=== PATIENT | female | born 1970 | race Caucasian/White ===

== ENCOUNTER 2019-07-24 12:17 | Emergency (ER) | payer BC ==
[2019-07-24 12:42] LABS: ABSOLUTE BASOPHILS # (AUTO) 0.1 10^3/uL (0.0-0.2); ABSOLUTE MONOCYTES (AUTO) 0.7 10^3/uL (0.1-1.4); HEMOGLOBIN 12.6 g/dL (12.0-15.5); TOTAL CELLS COUNTED % (AUTO) 100 %; WHITE BLOOD COUNT 13.2 10^3/uL (4.0-10.5)
[2019-07-24 12:47] LABS: ABSOLUTE EOSINOPHILS # (AUTO) 0.3 10^3/uL (0.0-0.6); ABSOLUTE LYMPHOCYTES (AUTO) 3.3 10^3/uL (0.5-4.7); ABSOLUTE NEUT (AUTO) 8.7 10^3/uL (1.7-8.2); BASOPHILS % (AUTO) 0.8 % (0-2); EOSINOPHILS % (AUTO) 2.6 % (0-6); HEMATOCRIT 37.2 % (36.0-47.0); LYMPHOCYTES % (AUTO) 24.7 % (13-45); MEAN CORPUSCULAR HEMOGLOBIN 27.5 pg (27.0-33.4); MEAN CORPUSCULAR HGB CONC 33.8 g/dL (32.0-36.0); MEAN CORPUSCULAR VOLUME 81 fl (80-97); MONOCYTES % (AUTO) 5.6 % (3-13); PLATELET COUNT 282 10^3/uL (150-450); RED BLOOD COUNT 4.57 10^6/uL (3.72-5.28); RED CELL DISTRIBUTION WIDTH 15.3 % (11.5-14.0); SEGMENTED NEUTROPHILS % (AUTO) 66.3 % (42-78)
[2019-07-24 13:01] LABS: ALBUMIN 4.1 g/dL (3.5-5.0); ALCOHOL < 10 mg/dL (NONE DETECTED); ALKALINE PHOSPHATASE 112 U/L (38-126); ANION GAP 10 (5-19); ASPARTATE AMINO TRANSFERASE 32 U/L (14-36); BILIRUBIN,DIRECT 0.2 mg/dL (0.0-0.4); BILIRUBIN,TOTAL 0.6 mg/dL (0.2-1.3); BLOOD UREA NITROGEN 12 mg/dL (7-20); CALCIUM 9.3 mg/dL (8.4-10.2); CARBON DIOXIDE 29 mmol/L (22-30); CHLORIDE 100 mmol/L (98-107); GLUCOSE 105 mg/dL (75-110); POTASSIUM 3.5 mmol/L (3.6-5.0); TOTAL PROTEIN 8.2 g/dL (6.3-8.2)
[2019-07-24 13:01] LABS: APPEARANCE,URINE CLEAR; BILIRUBIN,URINE NEGATIVE (NEGATIVE); COLOR,URINE YELLOW; GLUCOSE, URINE NEGATIVE (NEGATIVE); KETONES,URINE NEGATIVE (NEGATIVE); LEUKOCYTE ESTERASE,URINE NEGATIVE (NEGATIVE); NITRITE,URINE NEGATIVE (NEGATIVE); PROTEIN,URINE 30 mg/dL (NEGATIVE); URINE SPECIFIC GRAVITY 1.009; UROBILINOGEN,URINE NEGATIVE mg/dL (<2.0)
--- NOTE | 2019-07-24 13:02 | RADIOLOGY REPORT (SQ) ---
EXAM DESCRIPTION: CT HEAD WITHOUT COMPLETED DATE/TIME: 07/24/2019 12:29 pm REASON FOR STUDY: STROKE ALERT COMPARISON: None. TECHNIQUE: Axial images acquired through the brain without intravenous contrast. Images reviewed wi th bone, brain and subdural windows. Images stored on PACS. All CT scanners at this facility use dose modulation, iterative reconstruction, and/or weight based d osing when appropriate to reduce radiation dose to as low as reasonably achievable (ALARA). [facility]: Dose Right [facility]: CareDose [facility]: Dose Right [facility]: Teradose 4D [facility]: Smart Wanderio RADIATION DOSE: mGy. LIMITATIONS: None. FINDINGS: VENTRICLES: Normal size and contour. CEREBRUM: Focal hypoattenuation is seen adjacent to the left lateral ventricle extending to include t he caudate and putamen. A small amount of edema is seen adjacent to this finding, suggesting acute t o subacute ischemic injury. No masses. No hemorrhage. No midline shift. CEREBELLUM: No masses. No hemorrhage. No alteration of density. No evidence for acute infarction. EXTRAAXIAL SPACES: No fluid collections. No masses. ORBITS AND GLOBE: No intra- or extraconal masses. Normal contour of globe without masses. CALVARIUM: No fracture. PARANASAL SINUSES: No fluid or mucosal thickening. SOFT TISSUES: No mass or hematoma. OTHER: No other significant finding. IMPRESSION: Acute to subacute ischemic injury involving the left M1 segment of the MCA territory. EVIDENCE OF ACUTE STROKE: YES. Ischemic injury to the left caudate and putamen; M1 segment of the MC A territory COMMENT: Pertinent findings on the imaging study reported as a CRITICAL RESULT to Dr Baum at12:46 on 07/24/2019. Category of Critical Result: Stroke code positive Quality ID # [id number]: Final reports with documentation of one or more dose reduction techniques (e.g., Au tomated exposure control, adjustment of the mA and/or kV according to patient size, use of iterative reconstruction technique) TECHNICAL DOCUMENTATION: JOB ID: [id number] [employer]- All Rights Reserved Reading location - IP/workstation name: [email or web address]
[2019-07-24 13:06] LABS: INTERNATIONAL RATION (INR) 1.01; PROTHROMBIN TIME 13.3 SEC (11.4-15.4)
--- NOTE | 2019-07-24 13:06 | RADIOLOGY REPORT (SQ) ---
EXAM DESCRIPTION: CHEST SINGLE VIEW COMPLETED DATE/TIME: 07/24/2019 12:27 pm REASON FOR STUDY: STROKE ALERT COMPARISON: None. EXAM PARAMETERS: NUMBER OF VIEWS: One view. TECHNIQUE: Single frontal radiographic view of the chest acquired. RADIATION DOSE: NA LIMITATIONS: None. FINDINGS: LUNGS AND PLEURA: No opacities, masses or pneumothorax. No pleural effusion. MEDIASTINUM AND HILAR STRUCTURES: No masses. Contour normal. HEART AND VASCULAR STRUCTURES: Heart normal in size. Normal vasculature. BONES: No acute findings. HARDWARE: None in the chest. OTHER: No other significant finding. IMPRESSION: NO ACUTE RADIOGRAPHIC FINDING IN THE CHEST. TECHNICAL DOCUMENTATION: JOB ID: [id number] [employer]- All Rights Reserved Reading location - IP/workstation name: [email or web address]
[2019-07-24] MEDS ORDERED: NORMAL SALINE 1000 ML 1,000 ML IV ONE (13:13)
[2019-07-24] MEDS ORDERED: ASPIRIN 81 MG TABLET, CHEWABLE PO ONE (13:13)
[2019-07-24 13:16] LABS: URINE AMPHETAMINES SCREEN NEGATIVE; URINE BARBITURATES SCREEN NEGATIVE; URINE BENZODIAZEPINES SCREEN NEGATIVE; URINE COCAINE SCREEN NEGATIVE; URINE MARIJUANA (THC) SCREEN NEGATIVE; URINE METHADONE SCREEN NEGATIVE; URINE PHENCYCLIDINE SCREEN NEGATIVE
--- NOTE | 2019-07-24 13:25 | ER Document Report ---
Entered by SREEDHAR BACA SCRIBE 07/24/19 1239 Acting as scribe for:DELMA CANADA MD ED General - General Stated Complaint: POSSIBLE STROKE Mode of Arrival: Medic Information source: Patient Notes: This 49-year-old female patient with a history of prior TIAs presents to the emergency department today with complaints of left-sided weakness, left-sided facial droop, and slurred speech prior to arrival. Patient states that she had "about 6 or 7 TIAs" today, stating that each one seemed to be worse than the prior. Patient states she decided to come into the emergency department after the last TIA when she began to develop left-sided motor deficits. According to family at bedside, the patient had a TIA on 2018 and was put on Plavix for 3 weeks as well as atorvastatin. Patient adds that she stopp ed taking the atorvastatin however because she thought she might be allergic to it. On arrival here, the patient was rapidly assessed by Dr. Meek who noted mildly slurred speech as well as decreased sensation on the left hand side. All of these deficits have since resolved. On initial evaluation the patient is entirely neurologically intact with no deficits detected by me or reported by the patient. She is not a TPA candidate. - Related Data Allergies/Adverse Reactions: No Known Allergies Allergy (Unverified 07/24/19 13:29) Past Medical History - General Information source: Patient - Social History Smoking Status: Never Smoker Cigarette use (# per day): No Frequency of alcohol use: None Drug Abuse: None Lives with: Family Family History: Reviewed & Not Pertinent Neurological Medical History: Reports: Hx Cerebrovascular Accident - ? Possibly TIAs Review of Systems - Review of Systems Constitutional: No symptoms reported EENT: No symptoms reported Cardiovascular: No symptoms reported Respiratory: No symptoms reported Gastrointestinal: No symptoms reported Genitourinary: No symptoms reported Female Genitourinary: No symptoms reported Musculoskeletal: No symptoms reported Skin: No symptoms reported Hematologic/Lymphatic: No symptoms reported Neurological/Psychological: See HPI, Weakness, Speech impairment -: Yes All other systems reviewed and negative Physical Exam - Vital signs Vitals: Resp Pulse Ox 17 100 07/24/19 12:28 07/24/19 12:28 - Notes Notes: Physical Exam: General: Alert, appears well. HEENT: Normocephalic. Atraumatic. PERRL. Extraocular movements intact. Oropharynx clear. Very loud carotid bruit on the right. Neck: Supple. Non-tender. Respiratory: No respiratory distress. Clear and equal breath sounds bilaterally. Cardiovascular: Regular rate and rhythm. Abdominal: Normal Inspection. Non-tender. No distension. Normal Bowel Sounds. Back: No gross abnormalities. Extremities: Moves all four extremities. Upper extremities: Normal inspection. Normal ROM. Lower extremities: Normal inspection. No edema. Normal ROM. Neurological: Normal cognition. AAOx4. Normal speech. Psychological: Normal affect. Normal Mood. Skin: Warm. Dry. Normal color. Course - Re-evaluation Re-evalutation: 07/24/19 13:[address] scan was read by radiology partners, the radiologist called me to report acute ischemic injury in the left putamen, caudate and M1 segment of the MCA. I called the [facility] to expedite transfer to a stroke unit. While I was waiting for a written report, I called Dr. Lees who looked at the scan for me and reported that this was actually an old nonhemorrhagic infarct in the left frontal deep periventricular matter. The patient is accepted on an urgent basis to the stroke unit at [facility] by Dr. Carbajal. - Vital Signs Vital signs: Temp Pulse Resp BP Pulse Ox 98.6 F 94 21 H 167/85 H 98 07/24/19 12:43 07/24/19 12:42 07/24/19 14:01 07/24/19 14:01 07/24/19 14:01 - Laboratory Result Diagrams: 07/24/19 12:30 07/24/19 12:30 Laboratory results interpreted by me: 07/24/19 07/24/19 07/24/19 12:30 12:30 12:39 WBC 13.2 H RDW 15.3 H Absolute Neuts (auto) 8.7 H Potassium 3.5 L Urine Protein 30 H Urine Blood SMALL H - Diagnostic Test Radiology reviewed: Reports reviewed - CT scan is read as an old left frontal deep periventricular nonhemorrhagic infarct - EKG Interpretation by Me EKG shows normal: Sinus rhythm, [place], Intervals, QRS Complexes, ST-T Waves Rate: Normal - 86 Rhythm: NSR - Transfer of Care Care transferred to following provider: Dr. Ramon Notes: 07/24/19 16:26 Patient is pending transfer to [facility]. Transport is expected to be here at 7 PM this evening. Critical Care Note - Critical Care Note Total time excluding time spent on procedures (mins): 30 Discharge - Discharge Clinical Impression: History of recurrent transient ischemic attacks, Bruit of right carotid artery, Old cerebrovascular accident (CVA) without late effect Condition: Good Disposition: [facility], [facility] Scribe Attestation: 07/24/19 13:18 I personally performed the services described in the documentation, reviewed and edited the documentation which was dictated to the scribe in my presence, and it accurately records my words and actions. I personally performed the services described in the documentation, reviewed and edited the documentation which was dictated to the scribe in my presence, and it accurately records my words and actions.
[2019-07-24] MEDS ORDERED: POTASSIUM CHLORIDE 10 MEQ TABLET.ER PO ONE (16:27)
[2019-07-24] MEDS ORDERED: DEXTROSE 5%-LACTATED RINGERS 1,000 ML IV ONE (16:27)
[2019-07-24 21:12] VITALS: BP 197/90
--- NOTE | 2019-07-25 12:41 | EKG REPORT ---
SEVERITY:- NORMAL ECG - SINUS RHYTHM : Confirmed by: Aristeo Espinoza 25-Jul-2019 12:41:38
== END 2019-07-24 21:26 | disposition short-term general hospital (02) ==
LOC: ER 12:17
DX: R09.89 Other specified symptoms and signs involving the circulatory and respiratory systems (principal); R20.0 Anesthesia of skin; R47.81 Slurred speech; R53.1 Weakness; Z86.73 Personal history of transient ischemic attack (TIA), and cerebral infarction without residual deficits
CPT/HCPCS: 93005; 99291; 96360; 96361; 36415; 82962; 80307 ×2; 83735; 85025; 85610; 80053; 81001; 71045; 70450; 93010; J7121; J7030